=== PATIENT | male | born 1985 ===

== ENCOUNTER 2023-10-11 12:00 | Emergency (ER) | payer OTHER, SELFPAY ==
[2023-10-11 12:15] VITALS: BP 116/78; PULSE 90; RESP 16; TEMP 37.1; O2SAT 97
--- NOTE | 2023-10-11 12:37 | ED.URI ---
HPI - URI/Sore Throat General Chief Complaint: Upper Respiratory Infection Stated Complaint: Sore Throat, Congestion, Earache Source: patient and RN notes reviewed Mode of arrival: ambulatory Limitations: no limitations History of Present Illness HPI Narrative: 38 y/o male presented for c/o headache, body aches, sinus pressure/congestion, cough, fever/chills. Onset yesterday. Reports son with similar symptoms. Denies sob, wheezing, n/v/d. MD elicited complaint: cough Related Data Home Medications Medication Instructions Recorded Confirmed dextroamphetamine-amphetamine ER 10 mg PO DAILY 10/11/23 10/11/23 10 mg 24hr capsule,extend release (Adderall XR) Allergies Allergy/AdvReac Type Severity Reaction Status Date / Time No Known Allergies Allergy Verified 10/11/23 12:11 Review of Systems Review of Systems: CONSTITUTIONAL: Endorses malaise, chills, sweats, fever EYES: Denies visual changes, redness, or discharge ENT: Reports rhinorrhea, congestion, sinus pain, otalgia, sore throat CARDIOVASCULAR: Denies chest pain, palpitations, edema RESPIRATORY: Reports cough, post nasal drainage. Denies dyspnea GASTROINTESTINAL: Denies abdominal pain, nausea, vomiting, diarrhea SKIN: Denies rash or itching MUSCULOSKELETAL: Endorses myalgia NEUROLOGIC: Endorses headache PMFSH Past Medical History Medical History (Updated 10/11/23 @ 12:45 by Cass Drake APRN) No pertinent past medical history Exam Narrative: GENERAL: mildly Ill-appearing, nontoxic no acute distress. EYES: conjunctivae clear ENT: Mucous membranes moist. TMs pearly peguero with dull light reflex bilaterally; no tragal tenderness. Oropharynx not erythematous without lesions or exudate, no drooling, no hoarseness, no trismus, uvula midline. No tripod positioning, muffled voice, soft palate or pharyngeal wall bulging NECK: Supple. No lymphadenopathy CHEST: Clear to auscultation, breath sounds equal. No wheezing, rhonchi, rales, or stridor. No respiratory distress, speaks in full sentences. HEART: Regular rate and rhythm. No murmur heard. SKIN: Warm, dry, no rash. NEURO: Alert and oriented x3. PSYCH: Normal mood and affect Course Course Emergency Course: Patient is aware of diagnosis, understands and agrees to treatment plan. Anticipatory guidance given. Patient agrees to follow-up as directed and is aware of reasons to seek care at the emergency department. Portions of this record may have been created with voice recognition software Level of Care: Express Care Visit Vital Signs Vital signs: Vital Signs Temperature 98.8 F 10/11/23 12:15 Pulse Rate 90 10/11/23 12:15 Respiratory Rate 16 10/11/23 12:15 Blood Pressure 116/78 10/11/23 12:15 Pulse Oximetry 97 10/11/23 12:15 Temperature 98.8 F 10/11/23 12:15 Pulse Rate 90 10/11/23 12:15 Respiratory Rate 16 10/11/23 12:15 Blood Pressure 116/78 10/11/23 12:15 Pulse Oximetry 97 10/11/23 12:15 reviewed MDM - URI/Sore Throat MDM Narrative Medical decision making narrative: POS covid. Results reviewed with patient. Discussed physical exam findings. Advised supportive measures and signs/symptoms to go to the ER. Pt is appropriate for outpt treatment and f/u. Differential Diagnosis Differential diagnosis: Likely upper respiratory infection, sinusitis and viral infection Lab Data Labs: Lab Results 10/11/23 Range/Units 12:16 POC SARS CoV-2 Ag Positive (Negative) Influenza A Screen Negative Reference Range: Negative Influenza B Screen Negative Reference Range: Negative Strep Screen Presumptive Negative *(Reference Range: Negative)* Discharge Plan Discharge Clinical Impression: COVID-19 Patient Disposition: Home, Self-Care Condition: Stable
== END 2023-10-11 12:44 | disposition home or self-care (01) ==
PROVIDERS: Emergency Provider Nurse Practitioner Family
DX: U07.1 COVID-19 (principal); Z79.899 Other long term (current) drug therapy
CPT/HCPCS: 87081; 87426; 87804; 87880; 99213; C9803; G0463